=== PATIENT | male | born 1935 | race Caucasian/White ===

== ENCOUNTER 2017-08-23 11:27 | Outpatient (CLI) | payer MEDICARE ==
--- NOTE | 2017-08-23 13:39 | XRay Report ---
Right knee 2 views: History: Right knee pain. Findings: Narrowing of the medial and patellofemoral compartment knee joint. Sclerotic articular surfaces with degenerative changes. Mild degenerative changes lateral compartment. No fracture. No soft tissue calcification. Evidence of joint effusion. Impression: Arthritic changes right knee being more pronounced at the medial and patellofemoral compartment.
--- NOTE | 2017-08-23 13:40 | XRay Report ---
Lumbar spine 3 views: History: Back pain. Findings: Normal height of vertebral bodies. Decrease in height of L3-4, L4-5 and L5-S1. Sclerotic articular surfaces with peripheral osteophytes suggestive of degenerative changes. No fracture. No soft tissue calcification. 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
== END 2017-08-23 11:28 | disposition home or self-care (01) ==
LOC: XRAY 11:27
PROVIDERS: ATTEND Internal Medicine
DX: M47.896 Other spondylosis, lumbar region (principal); M17.11 Unilateral primary osteoarthritis, right knee
CPT/HCPCS: 72100

== ENCOUNTER 2019-02-28 09:58 | Outpatient (CLI) | payer MEDICARE ==
--- NOTE | 2019-02-28 10:34 | XRay Report ---
XRAY LEFT HAND THREE VIEWS: 02/28/19 09:58:00 CLINICAL: Pain and swelling. FINDINGS: Mild osteopenia. No fracture or dislocation. 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 The carpal bones are intact. The distal radius and ulna are intact. The bones of the hand are intact. Mild arthritis of the first MCP joint and minimal additional arthritis in the hand. Mild soft tissue swelling. No soft tissue air or foreign body. 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
== END 2019-02-28 09:59 | disposition home or self-care (01) ==
LOC: XRAY 09:58
PROVIDERS: ATTEND Internal Medicine
DX: M19.042 Primary osteoarthritis, left hand (principal); M85.842 Other specified disorders of bone density and structure, left hand